=== PATIENT | male | born 1990 | race Caucasian/White ===

== ENCOUNTER 2018-03-19 21:16 | Emergency (ER) | payer MEDICAID ==
[~2018-03-19] VITALS: Ht 167.6 cm; Wt 77.1 kg
[2018-03-19 21:26] VITALS: BP 130/87
--- NOTE | 2018-03-19 21:28 | NUR ---
PT AMBULATORY TO ER LOBBY W/ STEADY GAIT IN STABLE CONDITION.
--- NOTE | 2018-03-19 21:30 | NUR ---
PATIENT PRESENTS ER WITH C/O OF BACK PAIN X 3 DAYS. 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 PT HAS PAIN ON THE RIGHT UPPER PART OF BACK. PATIENT STATES PAIN OF 7/10 AT THIS TIME; VSS; PT IS A/O X 4. KNA. PT MEDICAL HX IS GERD. PATIENT POSITIONED FOR COMFORT; HOB ELEVATED; BEDRAILS UP X2; BED DOWN. ER MD MADE AWARE OF PT STATUS.
--- NOTE | 2018-03-19 23:44 | NUR ---
Dr. Zhou evaluating patient at bedside.
[2018-03-19] MEDS ORDERED: KETOROLAC 60 MG/2 ML VIAL IM ONE (23:50)
[2018-03-20 00:41] VITALS: BP 130/87
--- NOTE | 2018-03-20 00:41 | NUR ---
Patient discharged with v/s stable. Written and verbal after care instructions given and explained. Patient alert, oriented and verbalized understanding of instructions. Ambulatory with steady gait. All questions addressed prior to discharge. ID band removed. Patient advised to follow up with PMD. Rx of NAPROSYN WAS given. Patient educated on indication of medication including possible reaction and side effects. Opportunity to ask questions provided and answered.
== END 2018-03-20 00:41 | disposition home or self-care (01) ==
LOC: MED 21:16
DX: S23.3XXA Sprain of ligaments of thoracic spine, initial encounter (principal); K21.9 Gastro-esophageal reflux disease without esophagitis; Z98.890 Other specified postprocedural states; X58.XXXA Exposure to other specified factors, initial encounter; Y93.66 Activity, soccer; Y92.89 Other specified places as the place of occurrence of the external cause; Y99.8 Other external cause status
CPT/HCPCS: 71045; 96372; 99283; J1885

== ENCOUNTER 2018-10-11 04:12 | Emergency (ER) | payer MEDICAID ==
[~2018-10-11] VITALS: Ht 167.6 cm; Wt 72.6 kg
[2018-10-11 04:12] VITALS: BP 124/74
--- NOTE | 2018-10-11 04:12 | NUR ---
TO BED # 07 BROUGHT IN BY AMBULANCE
[2018-10-11] MEDS ORDERED: ONDANSETRON 4 MG ODT PO ONE (04:30)
[2018-10-11] MEDS ORDERED: FAMOTIDINE 20 MG TAB PO ONE (04:30)
--- NOTE | 2018-10-11 04:30 | NUR ---
28 YO M BIBA FROM HOME C/O 8/10 EPIGASTRIC PAIN X 4 HOURS WITH +NASUSEA -VOMITING. PT STATES HE HAS HAD FLU S/SX X 3 DAYS; FEVER/CHILLS, COUGH/CONGESTION. -- PT AWAKE, A/O X 4. ANSWERS QUESTIONS APPROPRIATELY. BEHAVIOR AGE APPROPRIATE. -- SKIN PINK, WARM, DRY. BREATHING EVEN, UNLABORED. PMH-- GASTRIC ULCER X5 YEARS AGO RX-- THERAFLU, MUCINEX YESTERDAY MORNING.
--- NOTE | 2018-10-11 04:50 | NUR ---
PT TAKEN TO CT VIA WC.
[2018-10-11 04:55] LABS: APPEARANCE,URINE CLEAR (CLEAR); BILIRUBIN,URINE NEGATIVE (NEGATIVE); BLOOD, URINE 3+ (NEGATIVE); COLOR,URINE YELLOW (YELLOW); LEUKOCYTE ESTERASE ,URINE NEGATIVE (NEGATIVE); NITRITE, URINE NEGATIVE (NEGATIVE); UGLUCOSE NEGATIVE (NEGATIVE)
[2018-10-11 04:56] LABS: BASOPHILS % (AUTO) 0.1 % (0.0-2.0); EOSINOPHILS # (AUTO) 0.2 K/uL (0-0.4); EOSINOPHILS % (AUTO) 2.6 % (0.0-4.0); HEMATOCRIT 43.2 % (36-52); HEMOGLOBIN 14.8 g/dL (12.0-18.0); LYMPHOCYTES % (AUTO) 25.6 % (20.5-51.1); MEAN CORPUSCULAR HEMOGLOBIN 29 pg (27-31); MEAN CORPUSCULAR HGB CONC 34 g/dL (33-37); MEAN CORPUSCULAR VOLUME 84.5 fL (80-94); MONOCYTES # (AUTO) 0.8 K/uL (0.8-1.0); MONOCYTES % (AUTO) 9.9 % (1.7-9.3); NEUTROPHILS # (AUTO) 4.9 K/uL (1.8-7.7); NEUTROPHILS % (AUTO) 61.8 % (42.2-75.2); PLATELET COUNT (AUTO) 184 K/uL (140-450); RED BLOOD CELL COUNT(AUTO) 5.11 MIL/uL (4.20-6.10); RED CELL DISTRIBUTION WIDTH 13.3 % (11.6-13.7)
--- NOTE | 2018-10-11 04:59 | NUR ---
PT RETURNED FROM CT.
[2018-10-11 05:05] LABS: RBC,URINE 20-50 /HPF (0-5)
[2018-10-11 05:19] LABS: ALBUMIN 3.3 g/dL (3.4-5.0); ANION GAP 15.5 (8-16); CARBON DIOXIDE 25.3 mmol/L (21-32); CREATININE 0.9 mg/dL (0.7-1.3); POTASSIUM 3.8 mmol/L (3.5-5.1); TOTAL BILIRUBIN 0.2 mg/dL (0.0-1.0)
--- NOTE | 2018-10-11 06:00 | NUR ---
PT RESTING COMFORTABLY IN BED. AROUSABLE TO VERBAL STIMULI. PT STATES PAIN DECREASED TO 4/10 AND IS FEELING BETTER.
[2018-10-11 06:07] VITALS: BP 118/82
--- NOTE | 2018-10-11 06:07 | NUR ---
Patient discharged with v/s stable. Written and verbal after care instructions given and explained. Patient alert, oriented and verbalized understanding of instructions. Ambulatory with steady gait. All questions addressed prior to discharge. ID band removed. Patient advised to follow up with PMD. Rx of Zofran, Miralax and Pepcid given. Patient educated on indication of medication including possible reaction and side effects. Opportunity to ask questions provided and answered.
== END 2018-10-11 06:07 | disposition home or self-care (01) ==
LOC: MED 04:12
DX: R31.9 Hematuria, unspecified (principal); N20.0 Calculus of kidney; K21.9 Gastro-esophageal reflux disease without esophagitis
CPT/HCPCS: 36415; 71045; 74176; 80053; 81001; 83690; 85025; 87086; 99284; Q0092; Q0162

== ENCOUNTER 2018-10-22 00:24 | Emergency (ER) | payer MEDICAID ==
[~2018-10-22] VITALS: Ht 167.6 cm; Wt 72.6 kg
[2018-10-22 00:40] VITALS: BP 127/60
--- NOTE | 2018-10-22 00:43 | NUR ---
TO LOBBY A/W BED AMBULATORY
--- NOTE | 2018-10-22 02:14 | NUR ---
PT AMBULATED TO BED
--- NOTE | 2018-10-22 02:15 | NUR ---
28Y MALE PRESENTED TO ED C/O EPIGASTRIC PAIN, SHARP 8/10 RADIATING TO LOWER BACK X2DAYS. PT STATED HE VOMITED 2HRS AGO, C/O NAUSEA, DENIES FEVER/CHILLS. PT REPORTS BEING HERE 2 WEEKS AGO AND WAS GIVEN MIRALAX WHICH HELPED WITH CONSTIPATION, BUT PT CONT TO HAVE ABD PAIN PER PT REPORT. ABD SOFT, TENDER TO TOUCH. PT AAOX4, RR EVEN UNLABORED, GCS 15, EDMD MADE AWARE, WILL CONTINUE TO MONITOR CLOSELY, BED LOCKED IN LOWEST POSITION, SIDERAIL UPX1.
[2018-10-22] MEDS ORDERED: NACL 0.9% 500 ML IV ONE (02:35)
[2018-10-22] MEDS ORDERED: ONDANSETRON 4 MG/2 ML VIAL IVP ONE (02:35)
[2018-10-22] MEDS ORDERED: KETOROLAC 30 MG/ML VIAL IVP ONE (02:35)
[2018-10-22 02:56] LABS: BASOPHILS % (AUTO) 0.4 % (0.0-2.0); EOSINOPHILS # (AUTO) 0.1 K/uL (0-0.4); EOSINOPHILS % (AUTO) 2.1 % (0.0-4.0); HEMATOCRIT 39.5 % (36-52); HEMOGLOBIN 13.4 g/dL (12.0-18.0); LYMPHOCYTES % (AUTO) 33.6 % (20.5-51.1); MEAN CORPUSCULAR HEMOGLOBIN 29 pg (27-31); MEAN CORPUSCULAR HGB CONC 34 g/dL (33-37); MEAN CORPUSCULAR VOLUME 84.8 fL (80-94); MONOCYTES # (AUTO) 0.6 K/uL (0.8-1.0); MONOCYTES % (AUTO) 9.4 % (1.7-9.3); NEUTROPHILS # (AUTO) 3.3 K/uL (1.8-7.7); NEUTROPHILS % (AUTO) 54.5 % (42.2-75.2); PLATELET COUNT (AUTO) 233 K/uL (140-450); RED BLOOD CELL COUNT(AUTO) 4.66 MIL/uL (4.20-6.10); RED CELL DISTRIBUTION WIDTH 13.1 % (11.6-13.7); WHITE BLOOD COUNT (AUTO) 6.1 K/uL (4.8-10.8)
[2018-10-22 03:07] LABS: CARBON DIOXIDE 28.2 mmol/L (21-32); CREATININE 0.9 mg/dL (0.7-1.3); POTASSIUM 4.2 mmol/L (3.5-5.1)
[2018-10-22 03:14] LABS: ALBUMIN 3.1 g/dL (3.4-5.0); TOTAL BILIRUBIN 0.2 mg/dL (0.0-1.0)
[2018-10-22 04:18] VITALS: BP 132/68
--- NOTE | 2018-10-22 04:18 | NUR ---
DPatient discharged with v/s stable. Written and verbal after care instructions given and explained. Patient alert, oriented and verbalized understanding of instructions. Ambulatory with steady gait. All questions addressed prior to discharge. ID band removed. Patient advised to follow up with PMD. Rx of LACTULOSE 10G/15ML AND MINERAL OIL 60ML given. Patient educated on indication of medication including possible reaction and side effects. Opportunity to ask questions provided and answered.
== END 2018-10-22 04:18 | disposition home or self-care (01) ==
LOC: MED 00:24
DX: K59.00 Constipation, unspecified (principal); K21.9 Gastro-esophageal reflux disease without esophagitis; R11.10 Vomiting, unspecified
CPT/HCPCS: 36415; 74176; 80053; 83690; 85025; 96361; 96374; 96375; 99284; J1885; J2405; J7030

== ENCOUNTER 2018-11-17 22:29 | Emergency (ER) | payer MEDICAID ==
[~2018-11-17] VITALS: Ht 167.6 cm; Wt 72.6 kg
[2018-11-17 22:35] VITALS: BP 125/82
[2018-11-17] MEDS ORDERED: predniSONE 20 MG TAB PO ONE (23:35)
[2018-11-18 00:03] VITALS: BP 125/82
== END 2018-11-18 00:03 | disposition home or self-care (01) ==
LOC: MED 22:29
DX: T78.40XA Allergy, unspecified, initial encounter (principal); K21.9 Gastro-esophageal reflux disease without esophagitis; R19.7 Diarrhea, unspecified; Z98.890 Other specified postprocedural states; Y92.89 Other specified places as the place of occurrence of the external cause
CPT/HCPCS: 99283; J7512

== ENCOUNTER 2019-04-10 22:55 | Emergency (ER) | payer SELFPAY ==
[~2019-04-10] VITALS: Ht 167.6 cm; Wt 74.8 kg
[2019-04-10 23:10] VITALS: BP 130/79
--- NOTE | 2019-04-10 23:13 | NUR ---
TO LOBBY A/W BED AMBULATORY
--- NOTE | 2019-04-10 23:57 | NUR ---
pt ambulated to bed 12
--- NOTE | 2019-04-11 00:19 | NUR ---
C/O LEFT LOWER MOLAR PAIN >1 WK WITH LEFT SIDED HEADACHE NOW NO DENTAL APPT YET---
[2019-04-11 00:48] VITALS: BP 115/98
--- NOTE | 2019-04-11 00:48 | NUR ---
Patient discharged with v/s stable. Written and verbal after care instructions given and explained. Patient alert, oriented and verbalized understanding of instructions. Ambulatory with steady gait. All questions addressed prior to discharge. ID band removed. Patient advised to follow up with PMD. Rx of NAPROSYN, NORCO, CLINDAMYACIN given. Patient educated on indication of medication including possible reaction and side effects. Opportunity to ask questions provided and answered.
== END 2019-04-11 00:48 | disposition home or self-care (01) ==
LOC: MED 22:55
DX: K08.89 Other specified disorders of teeth and supporting structures (principal); R51 Headache; H92.02 Otalgia, left ear; K21.9 Gastro-esophageal reflux disease without esophagitis; Z98.890 Other specified postprocedural states
CPT/HCPCS: 99283

== ENCOUNTER 2019-06-24 23:55 | Emergency (ER) | payer OTHER ==
[~2019-06-24] VITALS: Ht 167.6 cm; Wt 77.1 kg
--- NOTE | 2019-06-24 23:58 | NUR ---
PT RICCO LUOS. TAKEN TO BED 4
--- NOTE | 2019-06-24 23:58 | NUR ---
Jude meng in [facility] - 06/24/19 at [id number] by PHIL PT TAKEN TO BED 4
--- NOTE | 2019-06-25 00:01 | NUR ---
PT PLACED ON 3 LEAD ECG AND PULSE OXIMETRY.
[2019-06-25 00:03] VITALS: BP 112/74
--- NOTE | 2019-06-25 00:03 | NUR ---
Dr. Stanley examining patient.
--- NOTE | 2019-06-25 00:14 | NUR ---
XR AT BEDSIDE.
[2019-06-25] MEDS: NACL 0.9% 1,000 ML IV ONE (00:25)
[2019-06-25 01:39] VITALS: BP 112/74
--- NOTE | 2019-06-25 01:39 | NUR ---
Patient discharged with v/s stable. Written and verbal after care instructions given and explained. Patient verbalized understanding. Ambulatory with steady gait. All questions addressed prior to discharge. Advised to follow up with PMD.
== END 2019-06-25 01:39 | disposition home or self-care (01) ==
LOC: MED 23:55
DX: F41.9 Anxiety disorder, unspecified (principal); E86.0 Dehydration; K21.9 Gastro-esophageal reflux disease without esophagitis; Z88.1 Allergy status to other antibiotic agents
CPT/HCPCS: 71045; 96360; 99283; J7030; Q0092